=== PATIENT | male | born 2000 | race Caucasian/White ===

== ENCOUNTER 2021-05-11 17:37 | Emergency (ER) | payer OTHER ==
[2021-05-11 17:42] VITALS: TEMP 97.3
[2021-05-11 22:34] VITALS: BP 128/78; PULSE 76
== END 2021-05-11 22:35 | disposition home or self-care (01) ==
LOC: COL.ER 17:37
DX: F10.129 Alcohol abuse with intoxication, unspecified (principal); Y90.8 Blood alcohol level of 240 mg/100 ml or more
CPT/HCPCS: J2405; J7030